=== PATIENT | male | born 1950 | race Two or more races ===

== ENCOUNTER 2018-04-20 09:54 | Emergency (ER) | payer OTHER ==
[~2018-04-20] VITALS: Ht 172.7 cm; Wt 88.0 kg
[~2018-04-20 09:54] MED LIST: ATOR40TA52 PO; TERA5CAP42 PO
[2018-04-20 10:04] VITALS: BP 140/87
== END 2018-04-20 10:43 | disposition home or self-care (01) ==
LOC: ER 10:13
DX: S31.105D Unspecified open wound of abdominal wall, periumbilic region without penetration into peritoneal cavity, subsequent encounter (principal)